=== PATIENT | female | born 1950 | race Caucasian/White ===

== ENCOUNTER 2020-06-23 19:10 | Emergency (ER) | payer MEDICARE, OTHER ==
[~2020-06-23] VITALS: Ht 157 cm; Wt 77.1 kg
--- OUTSIDE RECORDS SUMMARY | 2020-06-23 19:16 | XMS REPORT | Continuity of Care Document ---
Author Organization Unknown Address Unknown Phone Unavailable Allergies There is no data. Medications There is no data. Problems There is no data. Procedures There is no data. Results Test Result Range PT/INR - 02/28/19 10:28 INR 1.7 NRG PT 16.7 sec 9.0-11.5 Encounters ACCT No. Visit Date/Time Discharge Status Pt. Type Provider Facility Loc./Unit Complaint [id number] 06/11/2020 16:40:00 06/11/2020 23:59: 59 CLS [facility] [id number] 02/28/2019 09:00:00 Document Registration [id number] 06/23/2020 19:12:[address] Emergency NNAMDI MCGEE DO [facility] FS LEG PAIN
--- OUTSIDE RECORDS SUMMARY | 2020-06-23 19:16 | XMS REPORT ---
Author Author Janette PATEL Organization [facility] Address [address] [place] [address] Care Team Providers Care Army Ranger Name Role Phone JENI PATEL Unavailable PROBLEMS Type Condition ICD9-CM Code [id number] Code Onset Dates Condition S tatus SNOMED Code Problem Allergic rhinitis, cause unspecified 477.9 0 39290947 Problem Well woman exam with routine gynecological exam V72.31 Apr, 0 963274609995833 Problem Pulmonary embolism and infarction I26.99 Jul 0 3303401547840 Problem Unspecified asthma(493.90) J45.909 0 61089717 Problem Allergic rhinitis, cause unspecified J30.9 0 23884725 Problem Type 2 diabetes mellitus without complications E11 .9 Active 095563149 Problem Pulmonary embolism and infarction 415.19 Jul 0 7610392311553 Problem Age related osteoporosis, unspecified pathologic al fracture presence M81.0 Active 339422587 Problem Polycystic ovaries 256.4 0 6 1968750 Problem Polycystic ovaries E28.2 0 6 5186081 Problem Well woman exam with routine gynecological exam Z01.419 Apr, 0 344313347912957 Problem Pulmonary embolism I26.99 Active 5 9460972 Problem 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 [address] [facility] [id number] [place] [address] Jan, [address] [address] Jan, [address] [address] Dec, exterminator (current) use of anticoagulant s Z79.01 [facility] [address] [id number] [address] [place] [address] Dec, Age related osteoporosis, un specified pathological fracture presence M81.[address] [address] Dec, Acute non-recurrent maxillary sinusitis J01.00 ; intermediate (current) use of anticoagulants Z79.01 and Type 2 diabetes mellitus without complications E11.9 [facility] [address] [id number] [address] [place] [address] Nov, [facility] [address] [id number] [address] [place] [address] Oct, [place] [address] [facility] [id number] [address] [place] [address] Oct, [place] [address] [facility] [id number] [address] [place] [address] Oct, [place] [address] [facility] [id number] [address] [place] [address] Aug, [place] [address] [facility] [id number] [address] [place] [address] Sep, IMMUNIZATIONS No Known Immunizations SOCIAL HISTORY Never Assessed REASON FOR VISIT med refill PLAN OF CARE VITAL SIGNS MEDICATIONS Medication Instructions Dosage Frequency Start Date End Date Duration S tatus Spironolactone 100 MG Orally 2 times a day 1 tablet Jan, 30 day(s) Active Advair Diskus 500-50 MCG/DOSE Inhalation Twice a day 1 puff Jan, 30 days Active RESULTS No Results PROCEDURES No Known procedures INSTRUCTIONS MEDICATIONS ADMINISTERED No Known Medications MEDICAL (GENERAL) HISTORY Type Description Date Medical History Asthma Medical History Polycystic ovaries Medical History Allergic rhinitis Medical History Pulmonary embolism Medical History Type 2 diabetes mellitus without complic ations Surgical History Nasal Surgery Surgical History Hysterectomy
--- OUTSIDE RECORDS SUMMARY | 2020-06-23 19:16 | XMS REPORT ---
Author Author Janette PATEL Organization [facility] Address [address] [place] [address] Care Team Providers Care Histologist Technologist Name Role Phone JENI PATEL Unavailable PROBLEMS Type Condition ICD9-CM Code VEL41-NC Code Onset Dates Condition S tatus SNOMED Code Problem Unspecified asthma(493.90) J45.909 0 03056537 Problem Allergic rhinitis, cause unspecified J30.9 0 94126071 Problem Polycystic ovaries E28.2 0 6 5457033 Problem Essential (primary) hypertension I10 Active 20783991 Problem Pulmonary embolism and infarction I26.99 Jul 0 7862744328533 Problem Pure hypercholesterolemia E78.00 Acti ve 514321785 Problem Well woman exam with routine gynecological exam Z01.419 Apr, 0 512919491824223 Problem Pulmonary embolism I26.99 Active 5 5828733 Problem 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 Active 485482588 Problem Age related osteoporosis, unspecified pathologic al fracture presence M81.0 Active 202901945 ALLERGIES No Information ENCOUNTERS Encounter Location Date Diagnosis [address] [id number] [address] Jan, [facility] [address] [id number] [place] [address] Jan, Acute rhinosinusitis J01.90 and Sore throat J02.[address] [id number] [address] Sep, Type 2 diabetes mellitus wit h other specified complication, without long-term current use of insulin E11.69 ; Pure hypercholesterolemia E78.00 and Acute non-recurrent maxillary sinusitis J01.[address] [id number] [address] Jul, [facility] [address] [id number] [place] [address] Jul, [facility] [address] [id number] [place] [address] March, Pulmonary embolism I26.99 an d 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 [facility] [address] [id number] [place] [address] Feb, [facility] [address] [id number] [place] [address] Feb, [facility] [address] [id number] [place] [address] Feb, Pulmonary embolism I26.99 [facility] [address] [id number] [place] [address] Feb, Pulmonary embolism I26.99 [facility] [address] [id number] [place] [address] Feb, [facility] [address] [id number] [place] [address] Feb, [facility] [address] [id number] [place] [address] Feb, [facility] [address] [id number] [place] [address] Feb, [facility] [address] [id number], [place] [address] Feb, Essential (primary) hyperten jose I10 and long-term (current) use of anticoagulants Z79.01 [facility] [address] [id number] [place] [address] Jan, [facility] [address] [facility] [id number] [address] [place] [address] Jan, [facility] [address] [id number] [place] [address] Jan, [address] [id number] [place] [address] Dec, rodent exterminator (current) use of a nticoagulants Z79.01 [facility] [address] [facility] [id number] [address] [place] [address] Dec, Age related osteoporosis, un specified pathological fracture presence M81.[address] [id number] [address] Dec, Acute non-recurrent maxillar y sinusitis J01.00 ; long-term (current) use of anticoagulants Z79.01 and Type 2 diabetes mellitus without complications E11.9 [facility] [address] [facility] [id number] [address] [place] [address] Nov, [place] [address] [facility] [id number] [address] [place] [address] Oct, [facility] [address] [facility] [id number] [address] [place] [address] Oct, [place] [address] [facility] [id number] [address] [place] [address] Oct, [facility] [address] [facility] [id number] [address] [place] [address] Aug, [place] [address] [facility] [id number] [address] [place] [address] Sep, IMMUNIZATIONS No Known Immunizations SOCIAL HISTORY Never Assessed REASON FOR VISIT Lab (walk-in) PLAN OF CARE VITAL SIGNS MEDICATIONS Unknown Medications RESULTS Name Result Date Reference Range INR (IN HOUSE) 2019-02-13 INR 1.5 1.10 - 3.30 PREVIOUS INR 2.3 CURRENT COUMADIN DOSE NEW COUMADIN DOSE Lot # [id number] Exp date 03/2020 PROCEDURES Procedure Date Ordered Result Body Site PROTHROMBIN TIME February 13, 2019 INSTRUCTIONS MEDICATIONS ADMINISTERED No Known Medications MEDICAL (GENERAL) HISTORY Type Description Date Medical History Asthma Medical History Polycystic ovaries Medical History Allergic rhinitis Medical History Pulmonary embolism Medical History Type 2 diabetes mellitus without complic ations Surgical History Nasal Surgery Surgical History Hysterectomy Hospitalization History see surgeries
--- OUTSIDE RECORDS SUMMARY | 2020-06-23 19:16 | XMS REPORT ---
Author Author Janette PATEL Organization [facility] Address [address] [place] [address] Care Team Providers Care Sheltered Workshop Executive Director Name Role Phone JENI PATEL Unavailable PROBLEMS Type Condition ICD9-CM Code XYQ40-RI Code Onset Dates Condition S tatus SNOMED Code Problem Well woman exam with routine gynecological exam V72.31 Apr, 0 913775554559471 Problem Polycystic ovaries 256.4 0 6 0757704 Problem Allergic rhinitis, cause unspecified 477.9 0 92198312 Problem Unspecified asthma(493.90) J45.909 0 06808639 Problem Allergic rhinitis, cause unspecified J30.9 0 89358618 Problem Polycystic ovaries E28.2 0 6 0519864 Problem Age related osteoporosis, unspecified pathologic al fracture presence M81.0 Active 932915838 Problem Pulmonary embolism and infarction I26.99 Jul 0 8118637365038 Problem Essential (primary) hypertension I10 Active 35345076 Problem Pulmonary embolism and infarction 415.19 Jul 0 8679375255319 Problem Well woman exam with routine gynecological exam Z01.419 Apr, 0 010470816747791 Problem Pulmonary embolism I26.99 Active 5 5637096 Problem [facility] (current) use of anticoagulants Z79.01 Active 289480396 Problem Type 2 diabetes mellitus without complications E11 .9 Active 280366032 ALLERGIES No Information ENCOUNTERS Encounter Location Date Diagnosis [address] [address] March, Pulmonary embolism I26.99 and [facility] (current) use of anticoagulants Z79.[address] [address] Feb, [address] [address] Feb, [address] [address] Feb, Pulmonary embolism I26.99 [facility] [address] [address] Feb, Pulmonary embolism I26.99 [facility] [address] [address] Feb, [facility] [address] [address] Feb, [facility] [address] [address] Feb, [facility] [address] [address] Feb, [facility] [address] [address] Feb, Essential (primary) hypertension I10 and 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 [facility] [address] [address] Jan, [place] [address] [facility] [id number] [address] [place] [address] Jan, [facility] [address] [address] Jan, [facility] [address] [address] Dec, termite helper (current) use of anticoagulant s Z79.01 [place] [address] [id number] [address] [place] [address] Dec, Age related osteoporosis, un specified pathological fracture presence M81.0 [facility] [address] [address] Dec, Acute non-recurrent maxillary sinusitis J01.00 ; [facility] (current) use of anticoagulants Z79.01 and Type 2 diabetes mellitus without complications E11.9 [place] [address] [id number] [address] [place] [address] Nov, [place] [address] [facility] [id number] [address] [place] [address] Oct, [place] [address] [facility] [id number] [address] [place] [address] Oct, [facility] [address] [facility] [id number] [address] [place] [address] Oct, [facility] [address] [facility] [id number] [address] [place] [address] Aug, [facility] [address] [facility] [id number] [address] [place] [address] Sep, IMMUNIZATIONS No Known Immunizations SOCIAL HISTORY Never Assessed REASON FOR VISIT PA adv PLAN OF CARE VITAL SIGNS MEDICATIONS Unknown Medications RESULTS No Results PROCEDURES No Known procedures INSTRUCTIONS MEDICATIONS ADMINISTERED No Known Medications MEDICAL (GENERAL) HISTORY Type Description Date Medical History Asthma Medical History Polycystic ovaries Medical History Allergic rhinitis Medical History Pulmonary embolism Medical History Type 2 diabetes mellitus without complic ations Surgical History Nasal Surgery Surgical History Hysterectomy
--- NOTE | 2020-06-23 19:19 | ED Lower Extremity ---
General Stated Complaint: LEG PAIN Source: patient Exam Limitations: no limitations History of Present Illness Date Seen by Provider: Jun 23, 2020 Time Seen by Provider: 19:19 Initial Comments 70-year-old female presents with left lower leg pain and swelling. Patient reports around 5:15 this evening a little girl was rocking a rocking chair and hit the lateral aspect of patient's lower leg with her head. Patient is on a blood thinner and has a large contusion/hematoma just distal to the knee on the lateral aspect of the leg. Patient is able ambulate but it is painful. She denies any other injury. Allergies and Home Medications Allergies Coded Allergies: alendronate sodium (Verified Allergy, Unknown, 06/23/20) amoxicillin (Verified Allergy, Unknown, 06/23/20) clavulanic acid (Verified Allergy, Unknown, 06/23/20) montelukast (Verified Allergy, Unknown, 06/23/20) Patient Home Medication List Home Medication List Reviewed: Yes Review of Systems Constitutional: No chills, No fever Respiratory: no symptoms reported Cardiovascular: no symptoms reported Gastrointestinal: no symptoms reported Genitourinary: no symptoms reported Musculoskeletal: see HPI Skin: see HPI Past Lfxsjwx-Tlcuho-Upobja Hx Past Med/Social Hx: Reviewed Nursing Past Med/Soc Hx Patient Social History Recent Foreign Travel: No Contact w/Someone Who Travel: No Physical Exam Vital Signs Vital Signs - First Documented 06/23/20 19:15 Temp 36.6 Pulse 98 Resp 14 B/P (MAP) 174/67 (102) Pulse Ox 99 O2 Delivery Room Air Capillary Refill : Height, Weight, BMI Height: '" Weight: lbs. oz. kg; BMI Method: General Appearance: no apparent distress Cardiovascular: normal peripheral pulses, regular rate, rhythm Respiratory: chest non-tender, lungs clear, normal breath sounds Gastrointestinal: non tender, soft Hips: bilateral hip non-tender Legs: left leg pain, left leg soft tissue tenderness (left leg with contusion/hematoma just distal to the knee on the lateral aspect of the diallo), left leg swelling Knees: bilateral knee non-tender Ankles: bilateral ankle non-tender Feet: bilateral foot non-tender Neurologic/Psychiatric: alert, normal mood/affect, oriented x 3 Skin: ecchymosis Progress/Results/Core Measures Results/Orders My Orders Orders - NNAMDI MCGEE DO Tibia Fibula 2 View Left (06/23/20 19:21) Vital Signs/I&O 06/23/20 19:15 Temp 36.6 Pulse 98 Resp 14 B/P (MAP) 174/67 (102) Pulse Ox 99 O2 Delivery Room Air Diagnostic Imaging Diagonstic Imaging: Xray Comments No acute fracture or dislocation Reviewed: Reviewed by Me Departure Impression Primary Impression: Contusion of left lower leg, initial encounter Disposition: HOME, SELF-CARE Condition: Stable Departure-Patient Inst. Referrals: JENI PATEL MD (PCP/Family) Primary Care Physician Patient Instructions: Contusion (DC), HEMATOMA Add. Discharge Instructions: Ice to affected area as needed Follow-up with her primary care provider in 5 to 7 days if no improvement in symptoms NNAMDI MCGEE DO Jun 23, 2020 19:19
--- NOTE | 2020-06-23 19:42 | Diagnostic Imaging Report ---
INDICATION: Trauma. COMPARISON: None. EXAMINATION: Two views of the left tibia-fibula were obtained. FINDINGS: There is no fracture or dislocation. Articular surfaces are age-appropriate. No radiopaque foreign body. IMPRESSION: No fracture or dislocation. Dictated by: Dictated on workstation # [id number]
[2020-06-23 19:50] VITALS: BP 174/67
== END 2020-06-23 19:51 | disposition home or self-care (01) ==
LOC: ER FS 19:12
DX: S80.12XA Contusion of left lower leg, initial encounter (principal); Z88.1 Allergy status to other antibiotic agents; Z88.8 Allergy status to other drugs, medicaments and biological substances; W22.8XXA Striking against or struck by other objects, initial encounter
CPT/HCPCS: 73590